=== PATIENT | male | born 1950 | race Two or more races ===

== ENCOUNTER 2025-05-11 13:15 | Emergency (ER) | payer MEDICARE, OTHER ==
[2025-05-11 13:40] LABS: BASOPHILS ABSOLUTE AUTO 0.03 10^3/uL (0.00-0.50); BASOPHILS PERCENT AUTO 0.4 % (0-1); EOSINOPHILS ABSOLUTE AUTO 0.12 10^3/uL (0.00-1.50); EOSINOPHILS PERCENT AUTO 1.7 % (0-6); IMMATURE GRAN ABSOLUTE AUTO 0.01 10^3/uL (0.00-0.49); IMMATURE GRAN PERCENT AUTO 0.1 % (0.0-4.9); LYMPHOCYTES ABSOLUTE AUTO 1.51 10^3/uL (0.60-5.00); LYMPHOCYTES PERCENT AUTO 20.8 % (24-44); MONOCYTES ABSOLUTE AUTO 0.54 10^3/uL (0.00-1.50); MONOCYTES PERCENT AUTO 7.4 % (0-10); NEUTROPHILS ABSOLUTE AUTO 5.05 x10^3/uL (1.80-8.00); NEUTROPHILS PERCENT AUTO 69.6 % (41-71); PLATELET COUNT,PLT 213 10^3/uL (150-400); RED BLOOD CELL COUNT 4.54 x10^6/uL (4.50-6.00); WHITE BLOOD CELL COUNT,WBC 7.3 10^3/uL (4.0-11.0)
[2025-05-11 13:53] LABS: ALANINE AMINOTRANSFERASE,ALT 39 U/L (12-78); ASPARTATE AMNIOTRANSFERASE,AST 29 U/L (15-37); BILIRUBIN TOTAL 0.5 mg/dL (0.0-1.0); BLOOD UREA NITROGEN,BUN 20 mg/dL (7-18); CARBON DIOXIDE,CO2 29 mmol/L (21-32); CHLORIDE,CL 106 mEq/L (98-106); CREATININE 1.1 mg/dL (0.7-1.3); GLUCOSE RANDOM 108 mg/dL (75-99); POTASSIUM,K 4.3 mEq/L (3.5-5.0); PROTEIN TOTAL,TP 7.5 g/dL (6.4-8.2); SODIUM,NA 142 mEq/L (136-145)
[2025-05-11 13:55] LABS: ESTIMATED GFR 70 mL/min (>=60)
== END 2025-05-11 14:15 | disposition home or self-care (01) ==
LOC: CC.ED 13:15
DX: J20.9 Acute bronchitis, unspecified (principal)
CPT/HCPCS: 36415; 71046; 80053; 85025; 86140; 87426-QW; 99283

== ENCOUNTER 2025-07-07 14:39 | Emergency (ER) | payer MEDICARE ==
[2025-07-07 15:06] LABS: BASOPHILS ABSOLUTE AUTO 0.03 10^3/uL (0.00-0.50); BASOPHILS PERCENT AUTO 0.4 % (0-1); EOSINOPHILS ABSOLUTE AUTO 0.16 10^3/uL (0.00-1.50); EOSINOPHILS PERCENT AUTO 1.9 % (0-6); IMMATURE GRAN ABSOLUTE AUTO 0.00 10^3/uL (0.00-0.49); IMMATURE GRAN PERCENT AUTO 0.0 % (0.0-4.9); LYMPHOCYTES ABSOLUTE AUTO 1.56 10^3/uL (0.60-5.00); LYMPHOCYTES PERCENT AUTO 18.9 % (24-44); MONOCYTES ABSOLUTE AUTO 0.88 10^3/uL (0.00-1.50); MONOCYTES PERCENT AUTO 10.7 % (0-10); NEUTROPHILS ABSOLUTE AUTO 5.62 x10^3/uL (1.80-8.00); NEUTROPHILS PERCENT AUTO 68.1 % (41-71); PLATELET COUNT,PLT 231 10^3/uL (150-400); RED BLOOD CELL COUNT 4.64 x10^6/uL (4.50-6.00); WHITE BLOOD CELL COUNT,WBC 8.3 10^3/uL (4.0-11.0)
[2025-07-07 15:27] LABS: ALANINE AMINOTRANSFERASE,ALT 47.0 U/L (12-78); ASPARTATE AMNIOTRANSFERASE,AST 37.0 U/L (15-37); BILIRUBIN TOTAL 1.4 mg/dL (0.0-1.0); BLOOD UREA NITROGEN,BUN 36.0 mg/dL (7-18); CARBON DIOXIDE,CO2 26.0 mmol/L (21-32); CHLORIDE,CL 105.0 mEq/L (98-106); CREATININE 1.2 mg/dL (0.7-1.3); EST CRCL DRUG DOSING (CG) 50.67 mL/min; GLUCOSE RANDOM 106.0 mg/dL (75-99); POTASSIUM,K 4.0 mEq/L (3.5-5.0); PROTEIN TOTAL,TP 7.0 g/dL (6.4-8.2); SODIUM,NA 142.0 mEq/L (136-145)
[2025-07-07 15:29] LABS: ESTIMATED GFR 63.0 mL/min (>=60)
[2025-07-07] MEDS: Heparin Sodium 5,000 Units/ML Vial IVPUSH ONE (15:41)
[2025-07-07] MEDS: Heparin Sodium/0.45% NaCl 25,000 UNITS/250 ML BAG IV SCH (15:41)
== END 2025-07-07 17:55 ==
LOC: CC.ED 14:39
DX: I21.4 Non-ST elevation (NSTEMI) myocardial infarction (principal); R79.89 Other specified abnormal findings of blood chemistry; I50.20 Unspecified systolic (congestive) heart failure; Z79.899 Other long term (current) drug therapy
CPT/HCPCS: 36415; 71045; 80053; 83735; 83880; 84484; 85025; 85730; 86140; 93005; 93010; 96365; 96366; 96376; 99284; 99285-25; J1644